=== PATIENT | female | born 2000 | race Caucasian/White ===

== ENCOUNTER 2022-02-06 12:06 | Emergency (ER) | payer OTHER, SELFPAY ==
[2022-02-06 12:17] VITALS: BP 110/68; PULSE 105; RESP 16; TEMP 36.9; O2SAT 99
--- NOTE | 2022-02-06 12:19 | ED.URI ---
HPI - URI/Sore Throat General Chief Complaint: Upper Respiratory Infection Stated Complaint: cold/flu sx Time Seen by Provider: 02/06/22 12:44 Source: patient and RN notes reviewed Mode of arrival: ambulatory Limitations: no limitations History of Present Illness HPI Narrative: 21-year-old female presents with concern for headache, fever that started Friday. She did reports she has had several infections since. Reports getting better in between each infection. She denies sore throat, nasal congestion, rhinorrhea,. MD elicited complaint: fever Related Data Home Medications Medication Instructions Recorded Confirmed armodafinil 250 mg tablet 250 mg PO DIRECTED 02/06/22 02/06/22 fluoxetine 40 mg capsule 40 mg DIRECTED 02/06/22 02/06/22 methylphenidate HCl 36 mg 36 mg PO DIRECTED 02/06/22 02/06/22 tablet,extended release 24 hr ([facility]) spironolactone 50 mg tablet 150 mg DIRECTED 02/06/22 02/06/22 Allergies Allergy/AdvReac Type Severity Reaction Status Date / Time aloe Allergy Mild Verified 09/13/16 16:28 Review of Systems Review of Systems: CONSTITUTIONAL: Reports fever. EYES: Denies visual changes, redness, or discharge. ENT: Denies rhinorrhea, congestion, sinus pain, otalgia and sore throat. CARDIOVASCULAR: Denies chest pain, palpitations, or edema. RESPIRATORY: Denies cough. Denies dyspnea. GASTROINTESTINAL: Denies abdominal pain, nausea, vomiting, diarrhea SKIN: Denies rash or itching. MUSCULOSKELETAL: Denies myalgia. NEUROLOGIC: Reports headache. All systems reviewed & are unremarkable except as noted in HPI and below PMFSH Comments At time of signature, agree with nursing past medical, surgical, social and family history. There is no relevant family history pertinent to the presenting complaint Exam Narrative: GENERAL: Well-appearing, well-nourished, and in no acute distress. HEAD: Normocephalic EYES: PERRLA, conjunctivae clear ENT: Nares clear, turbinates edematous and erythematous, clear discharge. Mucous membranes moist. TM pearly meyers with sharp light reflex bilaterally; no tragal tenderness. Oropharynx not erythematous without lesions. Tonsils not enlarged and without exudate, no drooling, no hoarseness, no trismus, uvula midline. NECK: Supple. No lymphadenopathy CHEST: Clear to auscultation, breath sounds equal. No wheezing, rhonchi, rales, or stridor. No respiratory distress, speaks in full sentences. HEART: Regular rate and rhythm. No murmur heard. SKIN: Warm, dry, no rash. NEURO: Alert and oriented x3. PSYCH: Normal mood and affect Course Course Emergency Course: Patient is aware of diagnosis, understands and agrees to treatment plan. Anticipatory guidance given. Patient agrees to follow-up as directed and is aware of reasons to seek care at the emergency department. Portions of this record may have been created with voice recognition software Level of Care: Express Care Visit Vital Signs Vital signs: Vital Signs Temperature 98.5 F 02/06/22 12:17 Pulse Rate 105 H 02/06/22 12:17 Respiratory Rate 16 02/06/22 12:17 Blood Pressure 110/68 02/06/22 12:17 Pulse Oximetry 99 02/06/22 12:17 Oxygen Delivery Room Air 02/06/22 12:17 Temperature 98.5 F 02/06/22 12:17 Pulse Rate 105 H 02/06/22 12:17 Respiratory Rate 16 02/06/22 12:17 Blood Pressure 110/68 02/06/22 12:17 Pulse Oximetry 99 02/06/22 12:17 Oxygen Delivery Room Air 02/06/22 12:17 Reviewed. MDM - URI/Sore Throat MDM Narrative Medical decision making narrative: Differential diagnosis considered: Jo virus, strep pharyngitis, allergic rhinitis, upper respiratory tract infection, sinusitis, rhinosinusitis, nasopharyngitis. viral pharyngitis, otitis media, otitis externa, pneumonia, bronchitis, viral cough syndrome, viral syndrome, and influenza. Exam findings show no acute concerns or changes; patient is non-toxic appearing and is in no distress. Patient is appropriate fo
== END 2022-02-06 13:17 | disposition home or self-care (01) ==
PROVIDERS: Emergency Provider Nurse Practitioner
DX: B34.9 Viral infection, unspecified (principal); F41.9 Anxiety disorder, unspecified; F32.A Depression, unspecified; G47.9 Sleep disorder, unspecified
CPT/HCPCS: 87804; 99213; G0463